=== PATIENT | female | born 1945 | race Caucasian/White ===

== ENCOUNTER 2023-05-11 10:01 | Day surgery (SDC) | payer MEDICARE, BC ==
[2023-05-06 11:48] VITALS: BMI 27.8
[~2023-05-11 10:01] MED LIST: LACTATED RINGERS 1,000 ML IV SCH; LIDOCAINE 1% (10MG/ML) FOR IV START INTRADERMA PRN
[2023-05-11 10:44] VITALS: TEMP 98
[2023-05-11] MEDS ORDERED: PROPOFOL 10 MG/ML 20 ML VIAL IV ONE (11:55)
[2023-05-11] MEDS ORDERED: LIDOCAINE 2% INJ 20 MG/ML (2 ML VIAL) ONE (11:55)
--- NOTE | 2023-05-11 12:03 | P.PCN ---
Date of Procedure: 05/11/23 Procedure(s) Performed: BRIEF HISTORY: Patient is a 77-year-old, pleasant, white female scheduled for an upper endoscopy as a part of evaluation of epigastric and left upper quadrant abdominal pain on and off for the last several months duration.. She was started on famotidine 40 mg daily and symptoms are significantly improved. PROCEDURE PERFORMED: Esophagogastroduodenoscopy with biopsy. PREOPERATIVE DIAGNOSIS: Epigastric and left upper quadrant abdominal pain of several months duration.. IV sedation per anesthesia. PROCEDURE: After informed consent was obtained, the patient was brought into the endoscopy unit. IV sedation was administered by Anesthesia under continuous monitoring. Initially the Olympus GIF-140 video endoscope was inserted into the mouth. Esophagus intubated without any difficulty. It was gradually advanced into the stomach and duodenum and carefully examined. The bulb and the second part of the duodenum appeared normal. The scope at this time was withdrawn to the stomach, adequately insufflated with air, and upon careful examination, mucosa of the antrum and mild patchy areas of erythema consistent with gastritis and biopsies were done from this area. Mucosa of the, body, cardia and the fundus appeared normal. The scope was then withdrawn into the esophagus. Moderate size hiatal hernia noted. The GE junction was located at 34 cm from the incisors. The esophagus appeared normal. There were no erosions or ulcerations seen and the patient tolerated the procedure well. IMPRESSION: 1. Mild antral gastritis. 2. Moderate sized hiatal hernia.. RECOMMENDATIONS: The findings of this examination were discussed with the patient as well as a family. She was advised to continue with famotidine 40 mg at bedtime and follow antireflux measures..
[2023-05-11] MEDS ORDERED: IV FLUID CONTINUATION 1,000 ML IV ONE (12:09)
[2023-05-11 12:54] VITALS: BP 110/64; PULSE 78; RESP 18
== END 2023-05-11 12:55 | disposition home or self-care (01) ==
LOC: ORWHC2ENDO 10:01
PROVIDERS: ATTEND Internal Medicine Gastroenterology
DX: K29.50 Unspecified chronic gastritis without bleeding (principal); K44.9 Diaphragmatic hernia without obstruction or gangrene; I10 Essential (primary) hypertension; E78.5 Hyperlipidemia, unspecified; Z79.82 Long term (current) use of aspirin; Z79.899 Other long term (current) drug therapy; Z98.890 Other specified postprocedural states
CPT/HCPCS: 88305; 43239; J2704; J2001